=== PATIENT | male | born 1965 | race Caucasian/White ===

== ENCOUNTER 2018-06-13 08:10 | Day surgery (SDC) | payer OTHER ==
[~2018-06-13] VITALS: Ht 165.1 cm; Wt 65.4 kg
[2018-06-13 08:41] VITALS: Ht 165.1 cm; Wt 65.4 kg
[2018-06-13 09:02] VITALS: BP 97/63; PULSE 48; RESP 20
[2018-06-13] MEDS ORDERED: FENTAnyl 50 MCG/ML VIAL ONE (09:33)
[2018-06-13] MEDS ORDERED: MIDAZOLAM 1 MG/ML 2 ML INJ ONE ×2 (09:33)
[2018-06-13 09:49] VITALS: BP 96/58; PULSE 54; RESP 16
== END 2018-06-13 11:19 | disposition home or self-care (01) ==
LOC: GIL 08:10
PROVIDERS: ATTEND Internal Medicine Gastroenterology
DX: Z12.11 Encounter for screening for malignant neoplasm of colon (principal); K64.4 Residual hemorrhoidal skin tags; K57.30 Diverticulosis of large intestine without perforation or abscess without bleeding
CPT/HCPCS: 45378; J2250; J3010; Z7610